=== PATIENT | male | born 1955 | race Caucasian/White ===

== ENCOUNTER 2021-04-20 11:28 | Outpatient (CLI) | payer OTHER ==
--- NOTE | 2021-04-20 19:32 | XRAY Report ---
PROCEDURE: Chest 2 View X-Ray INDICATIONS: COUGH / CONGESTION TECHNIQUE: 2 view(s) of the chest. COMPARISON: None. FINDINGS: Surgical changes and devices: None. Lungs and pleura: No pleural effusions or pneumothorax. Lungs are clear. Mediastinum: Mediastinal contours are normal. Heart size is normal. Bones and chest wall: No suspicious bony abnormalities. Soft tissues appear unremarkable. IMPRESSION: No evidence acute pulmonary process. Reviewed by: Estiven Guerra MD on 04/20/2021 7:31 PM PDT Approved by: Estiven Guerra MD on 04/20/2021 7:31 PM PDT Station ID: [id number]
== END 2021-04-20 11:30 ==
LOC: DI.N 11:28
PROVIDERS: ATTEND Family Medicine
DX: R05.9 Cough, unspecified (principal)

== ENCOUNTER 2021-05-11 14:08 | Outpatient (CLI) | payer OTHER | END 2021-05-11 14:09 | disposition home or self-care (01) | LOC: LAB 14:08 | PROVIDERS: ATTEND Family Medicine | DX: R61 Generalized hyperhidrosis (principal) | CPT/HCPCS: 87040 ==

== ENCOUNTER 2022-04-30 08:00 | Outpatient (CLI) | payer MEDICARE, OTHER ==
--- NOTE | 2022-04-30 20:21 | XRAY Report ---
PROCEDURE: Ankle 3 View LT INDICATIONS: L ANKLE PX TECHNIQUE: 3 views of the ankle were acquired. COMPARISON: None. FINDINGS: In both the talar dome and tibial plafond appear the ankle mortise is congruent. There is no suspicio us lytic or blastic osseous lesion. There is a small to moderate ankle joint effusion. 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 Reviewed by: Kamron Armstrong MD on 04/30/2022 8:19 PM PDT Approved by: Kamron Armstrong MD on 04/30/2022 8:19 PM PDT Station ID: [id number]
== END 2022-04-30 23:59 | disposition home or self-care (01) ==
LOC: DI.N 08:00
PROVIDERS: ATTEND Physician Assistant
DX: M19.072 Primary osteoarthritis, left ankle and foot (principal)

== ENCOUNTER 2022-05-04 16:25 | Outpatient (CLI) | payer MEDICARE, OTHER ==
--- NOTE | 2022-05-04 17:13 | XRAY Report ---
PROCEDURE: Ankle 2 View LT INDICATIONS: L ANKLE PAIN TECHNIQUE: 2 views of the ankle were acquired. COMPARISON: Left ankle radiographs 04/30/2022. FINDINGS: Bones: No fractures or dislocations. Ankle mortise is normally aligned. No suspicious bony lesions . Degenerative changes of the tibiotalar joint redemonstrated. Soft tissues: Similar tibiotalar joint effusion. Achilles tendon appears normal. IMPRESSION: No acute fracture or significant short interval change. Tibiotalar joint degenerative changes and eff usion redemonstrated. Reviewed by: Cezar Fernando MD on 05/04/2022 5:12 PM PDT Approved by: Cezar Fernando MD on 05/04/2022 5:12 PM PDT Station ID: [id number]
== END 2022-05-04 16:26 | disposition home or self-care (01) ==
LOC: DI 16:25
PROVIDERS: ATTEND Student in an Organized Health Care Education/Training Program
DX: M19.072 Primary osteoarthritis, left ankle and foot (principal); M25.472 Effusion, left ankle

== ENCOUNTER 2022-12-20 23:19 | Outpatient (CLI) | payer MEDICARE, OTHER | END 2022-12-20 23:59 | disposition critical access hospital (66) | LOC: EMS 23:19 | DX: R55 Syncope and collapse (principal) | CPT/HCPCS: A0425; A0429 ==

== ENCOUNTER 2022-12-20 23:36 | Emergency (ER) | payer MEDICARE, OTHER ==
[2022-12-20 23:51] LABS: BASOPHILS # (AUTO) 0.1 10^3/uL (0.0-0.1); BASOPHILS % (AUTO) 0.7 %; EOSINOPHILS # (AUTO) 0.4 10^3/uL (0.0-0.7); EOSINOPHILS % (AUTO) 3.7 %; HCT - HEMATOCRIT 38.2 % (42.0-52.0); HGB - HEMOGLOBIN 12.3 g/dL (14.0-18.0); LYMPHOCYTES # (AUTO) 2.1 10^3/uL (1.5-3.5); LYMPHOCYTES % (AUTO) 19.8 %; MEAN CORPUSCULAR HEMOGLOBIN 27.6 pg (27.0-31.0); MEAN CORPUSCULAR HGB CONC 32.2 g/dL (32.0-36.0); MEAN CORPUSCULAR VOLUME 85.8 fL (80.0-94.0); MEAN PLATELET VOLUME 9.2 fL (7.4-11.4); NEUTROPHILS # (AUTO) 7.1 10^3/uL (1.5-6.6); NEUTROPHILS % (AUTO) 66.1 %; PLT - PLATELET COUNT 239 10^3/uL (130-450); RED BLOOD COUNT 4.45 10^6/uL (4.70-6.10); RED CELL DISTRIBUTION WIDTH 13.5 % (12.0-15.0); WHITE BLOOD COUNT 10.7 x10^3/uL (4.8-10.8)
[2022-12-20] MEDS ORDERED: diltiaZEM INJ 5 MG/ML VIAL IVP STA (23:54)
--- NOTE | 2022-12-20 23:57 | ED Physician Documentation ---
History of Present Illness - Stated complaint Stated Complaint: SYNCOPE - Chief complaint Chief Complaint: Cardiac - History obtained from History obtained from: Patient, Family (), EMS - Additonal information Additional information: 67-year-old man with history of recent TAVR, aortic aneurysm repair via open heart surgery november 20, presents with syncopal episode lasting a few seconds in the recliner tonight. Patient declines chest pain, shortness of breath but is in a flutter on the monitor upon arrival. PD PAST MEDICAL HISTORY - Present Medications Home Medications: Ambulatory Orders Medication Instructions Recorded Confirmed Amiodarone [Pacerone] 200 mg PO BID #60 tablet 12/21/22 - Allergies Allergies/Adverse Reactions: Allergies Allergy/AdvReac Type Severity Reaction Status Date / Time No Known Drug Allergies Allergy Verified 12/20/22 23:52 PD ED PE NORMAL - Vitals Vital signs reviewed: Yes - General General: Alert and oriented X 3, No acute distress, Well developed/nourished - HEENT HEENT: Atraumatic, PERRL, EOMI - Neck Neck: Supple, no meningeal sign - Cardiac Cardiac: Other (Tachycardic rate rate, regular rhythm) - Respiratory Respiratory: No respiratory distress, Clear bilaterally - Abdomen Abdomen: Non tender, Non distended - Derm Derm: Normal color, Warm and dry - Extremities Extremities: No deformity - Neuro Neuro: Alert and oriented X 3 - Psych Psych: Normal mood, Normal affect Results - Vitals Vitals: Vital Signs - 24 hr 12/20/22 12/21/22 12/21/22 23:42 00:22 00:30 Temperature 37.1 C Heart Rate 67 92 95 Respiratory 22 25 H 19 Rate Blood Pressure 130/80 115/68 117/82 H O2 Saturation 96 96 95 12/21/22 00:38 Temperature Heart Rate 99 Respiratory 19 Rate Blood Pressure 128/67 O2 Saturation 98 Oxygen O2 Source Room air - EKG (time done) 8348 EKG releavant findings:: EKG personally interpreted by author of this note. Relevant findings are: Rate: Rate (enter#) (123) Rhythm: Atrial flutter - Labs Labs: Laboratory Tests 12/20/22 12/20/22 12/20/22 23:44 23:44 23:44 WBC 10.7 RBC 4.45 L Hgb 12.3 L Hct 38.2 L MCV 85.8 MCH 27.6 MCHC 32.2 RDW 13.5 Plt Count 239 MPV 9.2 Neut # (Auto) 7.1 H Lymph # (Auto) 2.1 [place] # (Auto) 1.0 Eos # (Auto) 0.4 Baso # (Auto) 0.1 Absolute Nucleated RBC 0.00 Nucleated RBC % 0.0 Sodium 136 Potassium 3.8 Chloride 105 Carbon Dioxide 22 Anion Gap 9.0 BUN 25 H Creatinine 1.0 Estimated GFR (MDRD) 75 L Glucose 128 H Calcium 8.5 Total Bilirubin 0.7 AST 28 ALT 34 Alkaline Phosphatase 83 Troponin I High Sens 6.1 Total Protein 7.2 Albumin 3.4 Globulin 3.8 Albumin/Globulin Ratio 0.9 L Lipase 34 PD Medical Decision Making - ED course ED course: 67-year-old man with recent open heart surgery presents with syncopal episode this evening. CBC, abdominal panel, troponin, EKG, chest x-ray ordered. 20 mg IV Cardizem administered for atrial flutter. Will reevaluate. Labs look benign and HR has improved to <100 s/p cardizem. Patient has hx anemia and required transfusion prior to surgery. no prior labs available but hb 12 at present. state he was on amiodarone 200mg bid since discharge from hospital but was told to stop it two days ago. discussed all this with Dr Hernandez, CT surgeon at [facility] and Dr. Calderon, [facility] snowmobile mechanic who recommended outpatient follow up and restart him on amiodarone 200bid for additional month. They did not recommend anticoagulation at this time. [id number] score is 2. Plan to f/u outpatient cardiology and they will readdress need for AC at that time. Return precautions given. Departure - Departure Disposition: 01 Home, Self Care Clinical Impression: Atrial fibrillation with RVR Condition: Stable Instructions: Atrial Fibrillation Dc Prescriptions: Amiodarone [Pacerone] 200 mg PO BID #60 tablet Comments: You are seen in the emergency department for a fainting episode and A-fib. Please follow-up with Dr. Calderon, snowmobile mechanic with the [facility]. You can also follow-up with cardiothoracic surgery. Return to the emergency department for new or worsening symptoms or other concerns. Electronic prescription for amiodarone was sent electronically to your [facility] pharmacy. Your snowmobile mechanic may want to start you on an anticoagulant such as warfarin when you follow up in clinic. Marlo Estes MD, MPH [email or web address] [id number] [place] [address] ~31 ak
[2022-12-21 00:40] VITALS: BP 128/67
--- NOTE | 2022-12-21 00:44 | XRAY Report ---
PROCEDURE: Chest 1 View X-Ray INDICATIONS: Chest Pain TECHNIQUE: One view of the chest was acquired. COMPARISON: Chest x-ray 04/24/2021. FINDINGS: Surgical changes and devices: Postsurgical changes demonstrated in the mediastinum with multiple med alessandro sternotomy wires. Lungs and pleura: Evaluation slightly limited by lordotic projection. No pleural effusions or pneumo thorax. Mediastinum: There are bibasilar medial opacities which may reflect artifact from patient's overlyin g soft tissues. Heart size is normal. Bones and chest wall: No suspicious bony lesions. Overlying soft tissues appear unremarkable. IMPRESSION: 1. Medial bibasilar opacities may represent artifact from patient's soft tissues and lordotic project ion. The differential includes a large hiatal hernia, atelectasis, or consolidation. Reviewed by: Venkata Hollingsworth MD on 12/21/2022 12:42 AM PDT Approved by: Venkata Hollingsworth MD on 12/21/2022 12:42 AM PDT Station ID: [id number]
[2022-12-21 00:49] LABS: ALBUMIN 3.4 g/dL (3.2-5.5); ALBUMIN/GLOBULIN RATIO 0.9 (1.0-2.2); BILIRUBIN,TOTAL 0.7 mg/dL (0.2-1.0); CALCIUM 8.5 mg/dL (8.5-10.3); POTASSIUM 3.8 mmol/L (3.5-5.0); TOTAL PROTEIN 7.2 g/dL (6.7-8.2)
== END 2022-12-21 01:58 | disposition home or self-care (01) ==
LOC: EDUNIT# → ED 23:36
DX: I48.92 Unspecified atrial flutter (principal)
CPT/HCPCS: 36415; 80053; 83690; 84484; 85025; 93005; 96374; 99284

== ENCOUNTER 2023-01-09 13:15 | Outpatient (CLI) | payer MEDICARE, OTHER | END 2023-01-09 13:16 | disposition home or self-care (01) | LOC: RT 13:15 | PROVIDERS: ATTEND Internal Medicine Cardiovascular Disease | DX: I48.19 Other persistent atrial fibrillation (principal); I77.819 Aortic ectasia, unspecified site | CPT/HCPCS: 93005 ==

== ENCOUNTER 2023-09-12 10:53 | Emergency (ER) | payer OTHER, MEDICARE ==
--- NOTE | 2023-09-12 12:14 | ED Physician Documentation ---
PD HPI SKIN - Stated complaint Stated Complaint: HEAD LAC - Chief complaint Chief Complaint: Laceration - Additional information Additional information: 68-year-old male who does not believe he is up-to-date with his immunizations presents emergency department today for forehead laceration. Patient was at work was using a crowbar for a project and as he was trying to release the crowbar he lost control and it swung and hit him in his head. He had no loss of consciousness he is not any blood thinners he denies any amnesia of the event. Bleeding is well-controlled. There is a small laceration on his forehead just superior to the right eyebrow. PD PAST MEDICAL HISTORY - Past Medical History Past Medical History: Yes Cardiovascular: Hypertension, Coronary artery disease, Atrial fibrillation - Past Surgical History Past Surgical History: Yes Cardiovascular: CABG, Valve replacement - Present Medications Home Medications: Ambulatory Orders Medication Instructions Recorded Confirmed Aspirin [[place] Aspirin] 81 mg PO DAILY 09/12/23 09/12/23 Chlorthalidone 25 mg PO DAILY 09/12/23 09/12/23 Losartan Potassium 25 mg PO BID 09/12/23 09/12/23 Metoprolol Succinate [[place] 25 mg PO DAILY 09/12/23 09/12/23 Sprinkle] Potassium Chloride 10 meq PO DAILY 09/12/23 09/12/23 Tamsulosin [Flomax] 1 cap PO DAILY 09/12/23 09/12/23 - Allergies Allergies/Adverse Reactions: Allergies Allergy/AdvReac Type Severity Reaction Status Date / Time No Known Drug Allergies Allergy Verified 09/12/23 11:00 - Social History Does the pt smoke?: No Smoking Status: Never smoker Does the pt drink ETOH?: Yes Does the pt have substance abuse?: No PD ED PE NORMAL - Vitals Vital signs reviewed: Yes - General General: Alert and oriented X 3, No acute distress, Well developed/nourished - HEENT HEENT: PERRL, EOMI, Other (2 cm laceration to right forehead superior to right elbow.) - Neck Neck: No bony TTP - Neuro Neuro: Alert and oriented X 3, cleaning attendant 2-12 intact, No motor deficit, No sensory deficit, Normal speech Eye Opening: Spontaneous Motor: Obeys Commands Verbal: Oriented GCS Score: 15 - Psych Psych: Normal mood Results - Vitals Vitals: Vital Signs - 24 hr 09/12/23 09/12/23 10:56 12:28 Temperature 36.4 C L Heart Rate 60 60 Respiratory 16 16 Rate Blood Pressure 153/70 H 138/68 H O2 Saturation 96 98 Oxygen O2 Source Room air Procedures - Laceration (location) right forehead Length in cm: 2 Wound type: Linear, Superficial, Clean Wound preparation: Irrigated copiously NS Skin layer closure: Dermabond, Steri strips (3) Other: Patient tolerated well, No complications, Tetanus booster given PD Medical Decision Making - ED course ED course: Wound inspected under direct bright light with good visualization. Area with linear laceration across soft tissue through adipose. No overt foreign body. Area hemostatic. Area extensively irrigated with sterile normal saline under pressure. Laceration repaired in simple fashion with dermabond and steri strips (x3) (please see procedure note for further details). Patient tolerated procedure well. Cautious return precautions discussed w/ full understanding. Wound care discussed. Departure - Departure Disposition: 01 Home, Self Care Clinical Impression: Laceration of head Qualifiers: Encounter type: initial encounter Location of open wound of head: other part of head Foreign body presence: without foreign body Qualified Code(s): S01.81XA - Laceration without foreign body of other part of head, initial encounter Instructions: ED Laceration All Comments: Come back for any signs of infection which would include: Redness, swelling, drainage, increased pain, or fevers. You can remove the Steri-Strips after 5 to 7 days if they are still on your forehead. Please come back to the emergency department for have any signs or symptoms of confusion, altered mental status, increased fatigue, or any other concerning symptoms. Forms: PCP List Discharge Date/Time: 09/12/23 12:29
[2023-09-12] MEDS: TETANUS/DIPHTHERIA/PERTUSSIS 0.5 ML SYRINGE IM ONE (12:15)
[2023-09-12 12:31] VITALS: BP 138/68; O2SAT 98
== END 2023-09-12 12:29 | disposition home or self-care (01) ==
LOC: EDUNIT# → ED 10:53
DX: S01.81XA Laceration without foreign body of other part of head, initial encounter (principal); W22.8XXA Striking against or struck by other objects, initial encounter; Y92.89 Other specified places as the place of occurrence of the external cause; Y99.0 Civilian activity done for income or pay; Z23 Encounter for immunization; I10 Essential (primary) hypertension; I25.10 Atherosclerotic heart disease of native coronary artery without angina pectoris; I48.91 Unspecified atrial fibrillation; Z95.1 Presence of aortocoronary bypass graft; Z95.2 Presence of prosthetic heart valve
CPT/HCPCS: 12011; 90471; 99283

== ENCOUNTER 2024-10-26 15:44 | Observation (INO) ==
--- OUTSIDE RECORDS SUMMARY | 2024-10-26 16:07 | EXTERNAL MEDICAL SUMMARY RPT | Continuity of Care Document ---
Author Organization [facility] Address [address] [place] [id number] Phone Problems date description facility 2024-08-25 15:23 Laceration without f oreign body of other part of head, initial encounter [facility] 2024-08-27 11:31 Laceration without f oreign body of other part of head, initial encounter [facility] 2024-09-25 10:37 Encounter for screen ing for malignant neoplasm of colon [employer] 2024-10-06 08:39 Encounter for screen ing for malignant neoplasm of colon [facility] Social History date description facility
--- NOTE | 2024-10-26 16:13 | ED Physician Documentation ---
History of Present Illness Stated complaint Stated Complaint: DIZZY Chief complaint Chief Complaint: Cardiac History obtained from History obtained from: Patient Additonal information Additional information: 69-year-old gentleman with history of aortic valve replacement and aortic aneurysm repair in November 2022. Perioperatively he did have some troubles with A- fib and was on amiodarone, he is no longer. He is not anticoagulated. He is on a small dose of metoprolol, 12.5 mg twice daily. Around noon today he got a dizzy spell, he felt like he was going to faint and was presyncopal. That lasted a couple of minutes, he had another shorter episode a couple of hours later during which his [employer] watch alarmed that his heart rate was in the low 40s. His usual heart rate is in the mid 50s. He denies chest pain with this. He does have some shortness of breath but says that it is probably due to allergies. Meds/Allgy Home Medications Ambulatory Orders Medication Instructions Recorded Confirmed aspirin 81 mg chewable tablet (St 81 mg PO DAILY 09/12/23 10/26/24 Charlie Butt) chlorthalidone 25 mg tablet 25 mg PO DAILY 09/12/23 10/26/24 losartan 25 mg tablet 25 mg PO BID 09/12/23 10/26/24 potassium chloride 10 mEq 10 meq PO DAILY 09/12/23 10/26/24 capsule,extended release tamsulosin 0.4 mg capsule 1 cap PO DAILY 09/12/23 10/26/24 albuterol sulfate 90 mcg/actuation 1 inh inhalation Q4H PRN shortness 09/25/24 10/26/24 aerosol inhaler of breath or wheezing atorvastatin 20 mg tablet (Lipitor) 20 mg PO DAILY 09/25/24 10/26/24 fluticasone 250 mcg-salmeterol 50 1 inh inhalation DAILY 09/25/24 10/26/24 mcg/dose blistr powdr for inhalation (Advair Diskus) fluticasone propionate 50 1 spray intranasal DAILY 09/25/24 10/26/24 mcg/actuation nasal spray,suspension (24 Hour Allergy Relief) folic acid 400 mcg tablet 400 mcg PO DAILY 09/25/24 10/26/24 metoprolol succinate 25 mg 12.5 mg PO DAILY 09/25/24 10/26/24 tablet,extended release 24 hr omeprazole 20 mg capsule,delayed 20 mg PO DAILY 09/25/24 10/26/24 release Allergies Allergies Allergy/AdvReac Type Severity Reaction Status Date / Time No Known Drug Allergies Allergy Verified 10/26/24 16:02 PFSH Active Problems All Active Problems (Updated 10/26/24 @ 18:13 by Jair Garcias MD) Symptomatic bradycardia (Acute) Colon cancer screening (Acute) Medical History Medical History (Updated 10/26/24 @ 18:13 by Jair Garcias MD) Asthma Hypertension High cholesterol GERD (gastroesophageal reflux disease) Surgical History Surgical History (Updated 10/02/24 @ 06:57 by Devin Vicente CRNA) History of aortic valve replacement History of aortic aneurysm repair History of hand surgery History of colonoscopy History of tonsillectomy Social History Social History (Updated 09/25/24 @ 11:25 by Chrystal Shepherd RN) Smoking Status: Former smoker Relationship: Do you feel safe in your home environment?: Yes Suffered physical, verbal, emotional, or financial abuse?: No History of Abuse: No Frequency: Occasional Substance Use: denies use Exam Exam Vital Signs: Vital Signs x48h Temp Pulse Resp BP Pulse Ox 10/26/24 18:30 42 L 12 146/75 H 99 10/26/24 18:15 43 L 10 L 135/66 H 97 10/26/24 18:00 42 L 14 138/76 H 98 10/26/24 17:45 44 L 132/72 H 97 10/26/24 17:30 46 L 16 144/72 H 98 10/26/24 17:15 44 L 16 142/77 H 98 10/26/24 17:02 45 L 12 114/61 93 10/26/24 16:17 45 L 18 98 10/26/24 15:58 36.5 C 44 L 18 141/50 H 98 Constitutional normal general appearance and no apparent distress Respiratory breath sounds equal bilaterally, normal respiratory effort and clear to auscultation bilaterally Cardiovascular Modest bradycardia, regular without murmur Gastrointestinal nontender to palpation Results Vitals Vitals: Vital Signs - 24 hr 10/26/24 15:58 10/26/24 16:17 10/26/24 17:02 Temperature 36.5 C Temperature Source Temporal Artery Scan Pulse Rate 44 L 45 L 45 L Respiratory Rate 18 18 12 Blood Pressure 141/50 H 114/61 O2 Saturation 98 98 93 O2 Source Room air Room air Room air Pain Intensity 0 0 0 10/26/24 17:15 10/26/24 17:30 10/26/24 17:45 Temperature Temperature Source Pulse Rate 44 L 46 L 44 L Respiratory Rate 16 16 Blood Pressure 142/77 H 144/72 H 132/72 H O2 Saturation 98 98 97 O2 Source Room air Room air Room air Pain Intensity 0 0 10/26/24 18:00 10/26/24 18:15 10/26/24 18:30 Temperature Temperature Source Pulse Rate 42 L 43 L 42 L Respiratory Rate 14 10 L 12 Blood Pressure 138/76 H 135/66 H 146/75 H O2 Saturation 98 97 99 O2 Source Room air Room air Room air Pain Intensity 0 0 Oxygen O2 Source Room air EKG (time done) 1625: EKG releavant findings:: EKG personally interpreted by author of this note. Relevant findings are: Sinus bradycardia with rate of 42, mild nonspecific IVCD, no ST elevation or depression. 1800: EKG releavant findings:: EKG personally interpreted by author of this note. Relevant findings are: Sinus bradycardia with rate of 44, early R wave transition Labs Labs: Laboratory Tests 10/26/24 16:13 WBC 8.8 RBC 4.86 Hgb 14.5 Hct 41.9 L MCV 86.2 MCH 29.8 MCHC 34.6 RDW 12.7 Plt Count 154 MPV 10.3 Neut # (Auto) 5.3 Lymph # (Auto) 2.4 [place] # (Auto) 0.7 Eos # (Auto) 0.2 Baso # (Auto) 0.1 Absolute Nucleated RBC 0.00 Nucleated RBC % 0.0 Sodium 136 Potassium 3.2 L Chloride 103 Carbon Dioxide 26 Anion Gap 7.0 BUN 18 Creatinine 0.9 Estimated GFR (MDRD) 84 L Glucose 105 H Calcium 8.7 Total Bilirubin 1.2 H AST 17 ALT 17 Alkaline Phosphatase 67 Total Protein 6.5 Albumin 4.0 Globulin 2.5 Albumin/Globulin Ratio 1.6 PD Medical Decision Making ED course ED course: This is a 69-year-old gentleman with history of aortic valve replacement and aortic aneurysm repair who presents with dizzy spells. He has noted to be bradycardic, going as low as 41 on the monitor but asymptomatic while supine in the bed. He is in a sinus rhythm. He is on metoprolol, but a tiny dose of 12.5 mg of long-acting once a day. He is on no other rate affecting agents. Labs we re checked with unremarkable CBC, CMP only remarkable for mild hypokalemia which was repleted. I gave him the option of going home and stopping his metoprolol but with the expectation he may still have dizzy spells, coming in the hospital here for metoprolol washout but with the expectation that his heart rate may not improve much given the dose of metoprolol he is on, or calling his watch and clock repair clerk and he opted for that. They were paged at 4:44 PM. I spoke with Dr. Peres at [facility] 4:52 PM. He reviewed the records and notes that the bradycardia is relatively chronic for him based on clinic notes. He notes that the patient does have hold parameters for the metoprolol. And also wonders if his symptoms might be due to dehydration related to his diuretic (chlorthalidone). We agreed I would give him a liter of fluids and see how he was doing upright and he should hold his metoprolol per his hold parameters (hold if less than 40 or symptomatic in less than 50). Around 1740 he started to have some pauses, looks like on the monitor he would have a sinus beat and then a PVC and then a long pause several times in a row. He was supine during this and was still asymptomatic, will obtain repeat EKG and call Dr. Peres again. I spoke with Dr. Peres again 6:11 PM with the above information and he feels the patient can stay the night here, have his electrolytes optimized and metoprolol washed out and reconsult if he is still having severe bradycardias or arrhythmias. I spoke with BREANNA Bonilla for observation at 6:13 PM. Discharge Plan Discharge Patient Disposition: ED Place in Observation Condition: Stable Clinical Impression: Symptomatic bradycardia Prescriptions: No Action potassium chloride 10 MEQ capsule, extended release 10 meq PO DAILY chlorthalidone 25 MG tablet 25 mg PO DAILY tamsulosin 0.4 MG capsule 1 cap PO DAILY losartan 25 MG tablet 25 mg PO BID aspirin [[place] Aspirin] 81 MG tablet,chewable 81 mg PO DAILY metoprolol succinate 25 mg tablet extended release 24 hr 12.5 mg PO DAILY fluticasone propion-salmeterol [Advair Diskus] 250-50 mcg/dose blister with device 1 inh inhalation DAILY fluticasone propionate [24 Hour Allergy Relief] 50 mcg/actuation spray,suspension 1 spray intranasal DAILY Rx Instructions: administer into each nostril omeprazole 20 mg capsule,delayed release(DR/EC) 20 mg PO DAILY atorvastatin [Lipitor] 20 mg tablet 20 mg PO DAILY folic acid 400 mcg tablet 400 mcg PO DAILY albuterol sulfate 90 mcg/actuation HFA aerosol inhaler 1 inh inhalation Q4H PRN (Reason: shortness of breath or wheezing) Print Language: Cameroonian Stand Alone Forms: PCP List
[2024-10-26 16:17] LABS: BASOPHILS # (AUTO) 0.1 10^3/uL (0.0-0.1); BASOPHILS % (AUTO) 0.6 %; EOSINOPHILS # (AUTO) 0.2 10^3/uL (0.0-0.7); EOSINOPHILS % (AUTO) 2.6 %; HCT - HEMATOCRIT 41.9 % (42.0-52.0); HGB - HEMOGLOBIN 14.5 g/dL (14.0-18.0); LYMPHOCYTES # (AUTO) 2.4 10^3/uL (1.5-3.5); LYMPHOCYTES % (AUTO) 27.7 %; MEAN CORPUSCULAR HEMOGLOBIN 29.8 pg (27.0-31.0); MEAN CORPUSCULAR HGB CONC 34.6 g/dL (32.0-36.0); MEAN CORPUSCULAR VOLUME 86.2 fL (80.0-94.0); MEAN PLATELET VOLUME 10.3 fL (7.4-11.4); MONOCYTES # (AUTO) 0.7 10^3/uL (0.0-1.0); NEUTROPHILS # (AUTO) 5.3 10^3/uL (1.5-6.6); NEUTROPHILS % (AUTO) 60.8 %; PLT - PLATELET COUNT 154 10^3/uL (130-450); RED BLOOD COUNT 4.86 10^6/uL (4.70-6.10); RED CELL DISTRIBUTION WIDTH 12.7 % (12.0-15.0); WHITE BLOOD COUNT 8.8 x10^3/uL (4.8-10.8)
[2024-10-26 16:34] LABS: ALBUMIN/GLOBULIN RATIO 1.6 (1.0-2.2); BILIRUBIN,TOTAL 1.2 mg/dL (0.2-1.0); CALCIUM 8.7 mg/dL (8.5-10.3); CREATININE 0.9 mg/dL (0.6-1.3); POTASSIUM 3.2 mmol/L (3.5-4.5); TOTAL PROTEIN 6.5 g/dL (6.4-8.9)
--- NOTE | 2024-10-26 16:43 | XRAY Report ---
PROCEDURE: XR Chest 1V INDICATIONS: dizzy TECHNIQUE: One view of the chest was acquired. COMPARISON: Midline sternotomy wires. FINDINGS: Surgical changes and devices: None. Lungs and pleura: No pleural effusions or pneumothorax. No consolidation. Mediastinum: Mediastinal contours appear normal. Heart size is top normal. Bones and chest wall: No suspicious bony lesions. Overlying soft tissues appear unremarkable. IMPRESSION: No gross infiltrates. Reviewed by: Estiven Guerra MD on 10/26/2024 4:42 PM PDT Approved by: Estiven Guerra MD on 10/26/2024 4:42 PM PDT Station ID: [id number]
[2024-10-26] MEDS: POTASSIUM BICARB 25 MEQ TABLET PO STA (17:02)
[2024-10-26] MEDS: SODIUM CHLORIDE 0.9% 1,000 ML IV STA (17:02)
[2024-10-26] MEDS ORDERED: ONDANSETRON 4 MG/2 ML VIAL IVP PRN (19:07)
[2024-10-26] MEDS ORDERED: ONDANSETRON ODT 4 MG TABLET TL PRN (19:07)
[2024-10-26] MEDS ORDERED: SODIUM CHLORIDE FLUSH 0.9% 10 ML SYRINGE IVP PRN (19:07)
[2024-10-26] MEDS ORDERED: ACETAMINOPHEN 325 MG TABLET PO PRN (19:07)
--- NOTE | 2024-10-26 19:14 | HISTORY & PHYSICAL EXAMINATION ---
Chief Complaint Chief Complaint Chief Complaint: Dizziness History of Present Illness Admitted From Admitted From:: Home with History Obtained From History obtained from: Interview with patient and at bedside History of Present Illness HPI Comment/Other: 69-year-old male history of aortic valve replacement and aortic aneurysm repair November 2022. Was briefly on amiodarone in the perioperative period but not anymore. He is on 12.5 mg metoprolol daily. He comes to the ER because he had a dizzy spell around noon after he stood up. He says he stood up out of his chair and started walking and felt lightheaded, weak in the legs, and that he felt like there was a fog for a brief moment. He had another such episode, and his smart watch alarmed that his heart rate was low. He denies fever, chills, chest pain, dyspnea, bowel or bladder disturbance. He does report some nasal and chest congestion from seasonal allergies. He states that he is a former smoker with a [id number] history. He is on an Advair inhaler and albuterol as needed. He says that seasonal allergies are normal for him and he feels like that is what is going on here. He manages this with Flonase nasal spray but no oral medication. In the ER, lab work was significant for potassium 3.2. He received a liter of IV fluids and is feeling better now. Somewhat concerning Lc, he is having bradycardia. He is having episodes where he will have a sinus beat immediately followed by PVC and a compensatory pause. This cycle will continue for some time with a functional heart rate in the 30s. Patient is asymptomatic during this. His case was discussed with cardiology at an outside facility. They report that his dizziness is likely secondary to dehydration from his chlorthalidone or effect of his metoprolol, even though he is only on 12.5 mg of metoprolol succinate daily. They recommended that we hold him in observation overnight and replete his fluid and electrolytes and that no transfer is necessary. Hospitalist was contacted for observation for dizziness, lightheadedness, symptomatic bradycardia Meds/Allgy Home Medications Ambulatory Orders Medication Instructions Recorded Confirmed aspirin 81 mg chewable tablet (St 81 mg PO DAILY 09/12/23 10/26/24 Charlie Aspirin) chlorthalidone 25 mg tablet 25 mg PO DAILY 09/12/23 10/26/24 losartan 25 mg tablet 25 mg PO BID 09/12/23 10/26/24 potassium chloride 10 mEq 10 meq PO DAILY 09/12/23 10/26/24 capsule,extended release tamsulosin 0.4 mg capsule 1 cap PO DAILY 09/12/23 10/26/24 albuterol sulfate 90 mcg/actuation 1 inh inhalation Q4H PRN shortness 09/25/24 10/26/24 aerosol inhaler of breath or wheezing atorvastatin 20 mg tablet (Lipitor) 20 mg PO DAILY 09/25/24 10/26/24 fluticasone 250 mcg-salmeterol 50 1 inh inhalation DAILY 09/25/24 10/26/24 mcg/dose blistr powdr for inhalation (Advair Diskus) fluticasone propionate 50 1 spray intranasal DAILY 09/25/24 10/26/24 mcg/actuation nasal spray,suspension (24 Hour Allergy Relief) folic acid 400 mcg tablet 400 mcg PO DAILY 09/25/24 10/26/24 metoprolol succinate 25 mg 12.5 mg PO DAILY 09/25/24 10/26/24 tablet,extended release 24 hr omeprazole 20 mg capsule,delayed 20 mg PO DAILY 09/25/24 10/26/24 release Allergies Allergies Allergy/AdvReac Type Severity Reaction Status Date / Time No Known Drug Allergies Allergy Verified 10/26/24 16:02 PFSH Active Problems All Active Problems (Updated 10/26/24 @ 18:13 by Jair Garcias MD) Symptomatic bradycardia (Acute) Colon cancer screening (Acute) Medical History Medical History (Updated 10/26/24 @ 18:13 by Jair Garcias MD) Asthma Hypertension High cholesterol GERD (gastroesophageal reflux disease) Surgical History Surgical History (Updated 10/02/24 @ 06:57 by Devin Vicente CRNA) History of aortic valve replacement History of aortic aneurysm repair History of hand surgery History of colonoscopy History of tonsillectomy Social History Social History (Updated 09/25/24 @ 11:25 by Chrystal Shepherd RN) Smoking Status: Former smoker Relationship: Do you feel safe in your home environment?: Yes Suffered physical, verbal, emotional, or financial abuse?: No History of Abuse: No Frequency: Occasional Substance Use: denies use Review of Systems Status of ROS: 10 or more systems reviewed and unremarkable except as noted in history and below Constitutional Denies: Fever or Chills Eyes Reports: Irritation Ears, nose, mouth, and throat Reports: Nasal congestion Cardiovascular Reports: other (Reports chest congestion); Denies: Irregular heart rate, chest pain, palpitations or shortness of breath with exertion Respiratory Denies: Shortness of breath or Cough Gastrointestinal Denies: Abdominal pain or Abdominal distention Genitourinary Denies: Painful urination Neurological Reports: Dizziness (With activity) Exam Exam Vital Signs: Vital Signs x48h Temp Pulse Resp BP Pulse Ox 10/26/24 18:45 46 L 14 146/75 H 98 10/26/24 18:30 42 L 12 146/75 H 99 10/26/24 18:15 43 L 10 L 135/66 H 97 10/26/24 18:00 42 L 14 138/76 H 98 10/26/24 17:45 44 L 132/72 H 97 10/26/24 17:30 46 L 16 144/72 H 98 10/26/24 17:15 44 L 16 142/77 H 98 10/26/24 17:02 45 L 12 114/61 93 10/26/24 16:17 45 L 18 98 10/26/24 15:58 36.5 C 44 L 18 141/50 H 98 Constitutional normal general appearance and no apparent distress HENMT normocephalic and head/scalp atraumatic Eyes PERRL Neck/C-Spine visual inspection normal Lymph no lymphadenopathy noted Chest inspection of chest normal Respiratory breath sounds equal bilaterally, normal respiratory effort and clear to auscultation bilaterally Cardiovascular heart rate abnormal (bradycardic) and rhythm abnormal (Sinus bradycardia with episodes of ventricular bigeminy with pause) Gastrointestinal abdomen normal to inspection and abdomen soft to palpation Genitourinary bladder normal to palpation Extremities normal to inspection and normal to palpation Neurology GCS 15 Psychiatry oriented x3 Skin skin color normal Conclusion/Plan Problem List (1) Symptomatic bradycardia: Plan: Cardiology at outside facility was contacted by ER provider, they report that the bradycardia is not the cause of his dizziness Telemetry Low threshold to transfer if he becomes symptomatic during his episodes of bradycardia His dizziness was associated with activity I have ordered potassium 40 mill equivalent to address his hypokalemia at the recommendation of outside cardiology (2) Asthma: Plan: Asthma with a [id number] smoking history On Advair plus rescue inhaler at home He has been reporting some seasonal allergies that have been affecting this I am continuing his home Flonase as well as his inhaler regimen I am also adding 10 mg Zyrtec daily to help with his allergies Plan Placed in observation Full code His is a surrogate decision-maker Lab Results Lab results reviewed: Yes 10/26/24 16:13 10/26/24 16:13 Core Measures Anticipated LOS I expect patient to be DC'd or transferred within 96 hours.: Yes DVT/VTE - Prophylaxis VTE/DVT Prophylaxis med ordered at admit?: Yes
[2024-10-26] MEDS ORDERED: ALBUTEROL NEB 2.5 MG/3 ML INH PRN (19:22)
[2024-10-26] MEDS: POTASSIUM CHLORIDE 20 MEQ TABLET PO STA (19:54)
[2024-10-26] MEDS: LOSARTAN 50 MG TABLET PO SCH (20:23)
[2024-10-27] MEDS: SODIUM CHLORIDE FLUSH 0.9% 10 ML SYRINGE IVP SCH (01:00)
[2024-10-27 04:49] VITALS: TEMP 97.7; O2SAT 96
[2024-10-27 05:10] LABS: BASOPHILS # (AUTO) 0.1 10^3/uL (0.0-0.1); BASOPHILS % (AUTO) 0.6 %; EOSINOPHILS # (AUTO) 0.2 10^3/uL (0.0-0.7); EOSINOPHILS % (AUTO) 2.6 %; HCT - HEMATOCRIT 42.1 % (42.0-52.0); HGB - HEMOGLOBIN 14.2 g/dL (14.0-18.0); LYMPHOCYTES # (AUTO) 2.7 10^3/uL (1.5-3.5); MEAN CORPUSCULAR HGB CONC 33.7 g/dL (32.0-36.0); MEAN CORPUSCULAR VOLUME 88.8 fL (80.0-94.0); MEAN PLATELET VOLUME 10.8 fL (7.4-11.4); MONOCYTES # (AUTO) 0.7 10^3/uL (0.0-1.0); MONOCYTES % (AUTO) 8.7 %; NEUTROPHILS # (AUTO) 4.5 10^3/uL (1.5-6.6); NEUTROPHILS % (AUTO) 54.9 %; PLT - PLATELET COUNT 138 10^3/uL (130-450); RED BLOOD COUNT 4.74 10^6/uL (4.70-6.10); RED CELL DISTRIBUTION WIDTH 12.8 % (12.0-15.0); WHITE BLOOD COUNT 8.2 x10^3/uL (4.8-10.8)
[2024-10-27 05:19] LABS: CALCIUM 8.7 mg/dL (8.5-10.3); CREATININE 0.9 mg/dL (0.6-1.3); POTASSIUM 3.9 mmol/L (3.5-4.5)
[2024-10-27] MEDS: PANTOPRAZOLE 40 MG TABLET PO SCH (06:46)
[2024-10-27 08:01] VITALS: BP 126/62
[2024-10-27] MEDS: ENOXAPARIN 40 MG/0.4 ML SYRINGE SUBQ SCH (08:48)
[2024-10-27] MEDS: ASPIRIN CHEW 81 MG TABLET PO SCH (08:49)
[2024-10-27] MEDS: FOLIC ACID 1 MG TABLET PO SCH (08:49)
[2024-10-27] MEDS: ATORVASTATIN 10 MG TABLET PO SCH (08:49)
[2024-10-27] MEDS: TAMSULOSIN 0.4 MG CAPSULE PO SCH (08:49)
[2024-10-27] MEDS: FLUTICASONE NASAL SPRAY NAS SCH (08:54)
[2024-10-27] MEDS: FORMOTEROL FUMARATE NEB 20 MCG/2 ML INH SCH (09:04)
[2024-10-27] MEDS: BUDESONIDE 0.5 MG/2 ML NEB INH SCH (09:04)
--- NOTE | 2024-10-27 11:26 | PHARMACY PROGRESS NOTE ---
Best Possible Medication History Admit Date and Time: 10/26/24 190 Home Medications Medication Instructions Recorded Confirmed Type aspirin 81 mg chewable tablet (St 81 mg PO DAILY 09/12/23 10/26/24 History Charlie Aspirin) chlorthalidone 25 mg tablet 25 mg PO DAILY 09/12/23 10/26/24 History losartan 25 mg tablet 25 mg PO BID 09/12/23 10/26/24 History potassium chloride 10 mEq 10 meq PO DAILY 09/12/23 10/26/24 History capsule,extended release tamsulosin 0.4 mg capsule 1 cap PO DAILY 09/12/23 10/26/24 History albuterol sulfate 90 mcg/actuation 1 inh inhalation Q4H PRN shortness 09/25/24 10/26/24 History aerosol inhaler of breath or wheezing atorvastatin 20 mg tablet (Lipitor) 20 mg PO DAILY 09/25/24 10/26/24 History fluticasone 250 mcg-salmeterol 50 1 inh inhalation DAILY 09/25/24 10/26/24 History mcg/dose blistr powdr for inhalation (Advair Diskus) fluticasone propionate 50 1 spray intranasal DAILY PRN 09/25/24 10/27/24 History mcg/actuation nasal allergy symptoms spray,suspension (24 Hour Allergy Relief) folic acid 400 mcg tablet 400 mcg PO DAILY 09/25/24 10/26/24 History metoprolol succinate 25 mg 12.5 mg PO DAILY 09/25/24 10/27/24 History tablet,extended release 24 hr omeprazole 20 mg capsule,delayed 20 mg PO DAILY 09/25/24 10/26/24 History release Processed by: Pharmacy (Medication reconciliation completed by [employer] DrafterCrystal) Medications reviewed in ED?: No Medication History completed: Yes Patient Interview: Completed Secondary Source(s): Insurance records [facility] Statement: As the person ultimately responsible for medication therapy, providers are able to order a medication from an existing home medication list in [facility] via the "Reconcile Routine" prior to Confirmation of that medication by youth accommodation support worker. Such practice is discouraged except when the physician, in their clinical judgment, deems that a medical need exists for a medication without regard to previous use.
--- NOTE | 2024-10-27 11:39 | Discharge Summary ---
Discharge Summary Admit Date: 10/26/24 Discharge Date: 10/27/24 Discharging Provider: Eric Bonilla NP Primary Care Provider: Hua George Code Status: Attempt Resuscitation DIAGNOSES Admission Diagnoses: Symptomatic bradycardia Asthma Discharge Diagnoses with Status of Each Condition: Symptomatic bradycardia that she was observed overnight and is no longer symptomatic Asthmachronic HPI History of Present Illness: 69-year-old male history of aortic valve replacement and aortic aneurysm repair November 2022. Was briefly on amiodarone in the perioperative period but not anymore. He is on 12.5 mg metoprolol daily. He comes to the ER because he had a dizzy spell around noon after he stood up. He says he stood up out of his chair and started walking and felt lightheaded, weak in the legs, and that he felt like there was a fog for a brief moment. He had another such episode, and his smart watch alarmed that his heart rate was low. He denies fever, chills, chest pain, dyspnea, bowel or bladder disturbance. He does report some nasal and chest congestion from seasonal allergies. He states that he is a former smoker with a [id number] history. He is on an Advair inhaler and albuterol as needed. He says that seasonal allergies are normal for him and he feels like that is what is going on here. He manages this with Flonase nasal spray but no oral medication. In the ER, lab work was significant for potassium 3.2. He received a liter of IV fluids and is feeling better now. Somewhat concerning Lc, he is having bradycardia. He is having episodes where he will have a sinus beat immediately followed by PVC and a compensatory pause. This cycle will continue for some time with a functional heart rate in the 30s. Patient is asymptomatic during this. His case was discussed with cardiology at an outside facility. They report that his dizziness is likely secondary to dehydration from his chlorthalidone or effect of his metoprolol, even though he is only on 12.5 mg of metoprolol succinate daily. They recommended that we hold him in observation overnight and replete his fluid and electrolytes and that no transfer is necessary. Hospitalist was contacted for observation for dizziness, lightheadedness, symptomatic bradycardia HOSPITAL COURSE Hospital Course: He was placed in observation overnight and his symptoms have resolved. He is being discharged home to follow-up with cardiology. I have recommended he stop his diuretic and his beta-samantha until he can be seen by his mechanical adjuster. He is already called the office to set up an appointment ALLERGIES Allergies Allergy/AdvReac Type Severity Reaction Status Date / Time No Known Drug Allergies Allergy Verified 10/26/24 16:02 MEDICATIONS Ambulatory Orders Medication Instructions Recorded Confirmed aspirin 81 mg chewable tablet (St 81 mg PO DAILY 09/12/23 10/26/24 Charlie Aspirin) chlorthalidone 25 mg tablet 25 mg PO DAILY 09/12/23 10/26/24 losartan 25 mg tablet 25 mg PO BID 09/12/23 10/26/24 potassium chloride 10 mEq 10 meq PO DAILY 09/12/23 10/26/24 capsule,extended release tamsulosin 0.4 mg capsule 1 cap PO DAILY 09/12/23 10/26/24 albuterol sulfate 90 mcg/actuation 1 inh inhalation Q4H PRN shortness 09/25/24 10/26/24 aerosol inhaler of breath or wheezing atorvastatin 20 mg tablet (Lipitor) 20 mg PO DAILY 09/25/24 10/26/24 fluticasone 250 mcg-salmeterol 50 1 inh inhalation DAILY 09/25/24 10/26/24 mcg/dose blistr powdr for inhalation (Advair Diskus) fluticasone propionate 50 1 spray intranasal DAILY PRN 09/25/24 10/27/24 mcg/actuation nasal allergy symptoms spray,suspension (24 Hour Allergy Relief) folic acid 400 mcg tablet 400 mcg PO DAILY 09/25/24 10/26/24 metoprolol succinate 25 mg 12.5 mg PO DAILY 09/25/24 10/27/24 tablet,extended release 24 hr omeprazole 20 mg capsule,delayed 20 mg PO DAILY 09/25/24 10/26/24 release PHYSICAL EXAM AT DISCHARGE Vital Signs: Vital Signs x48h Temp Pulse Pulse Resp BP Pulse Ox 10/27/24 09:12 45 L 16 10/27/24 08:00 36.5 C 43 L 16 126/62 96 10/27/24 04:48 36.5 C 44 L 12 130/65 96 General Appearance: positive No acute distress and Alert Eyes Bilateral: positive Normal inspection ENT: positive ENT inspection nml Neck: positive Nml inspection Respiratory: positive Chest non-tender Cardiovascular: positive Bradycardia Peripheral Pulses: positive 2+ Abdomen: positive Non-tender Skin: positive Color nml Extremities: positive Non-tender Neurologic/Psychiatric: positive Oriented x3 LABS 10/27/24 04:42 10/27/24 04:42 FOLLOW UP Follow Up: With cardiology TIME SPENT Time Spent in Discharge (Minutes): 20 Discharge Plan Discharge Patient Disposition: Home, Self Care Condition: Stable Medically Cleared Date:: 10/27/24 Prescriptions: Continued tamsulosin 0.4 MG capsule 1 cap PO DAILY losartan 25 MG tablet 25 mg PO BID aspirin [St Charlie Aspirin] 81 MG tablet,chewable 81 mg PO DAILY fluticasone propion-salmeterol [Advair Diskus] 250-50 mcg/dose blister with device 1 inh inhalation DAILY fluticasone propionate [24 Hour Allergy Relief] 50 mcg/actuation spray,suspension 1 spray intranasal DAILY PRN (Reason: allergy symptoms) Rx Instructions: administer into each nostril omeprazole 20 mg capsule,delayed release(DR/EC) 20 mg PO DAILY atorvastatin [Lipitor] 20 mg tablet 20 mg PO DAILY folic acid 400 mcg tablet 400 mcg PO DAILY albuterol sulfate 90 mcg/actuation HFA aerosol inhaler 1 inh inhalation Q4H PRN (Reason: shortness of breath or wheezing) Held potassium chloride 10 MEQ capsule, extended release 10 meq PO DAILY Hold Instructions: Hold until otherwise directed by mechanical adjuster chlorthalidone 25 MG tablet 25 mg PO DAILY Hold Instructions: Hold until otherwise directed by your mechanical adjuster metoprolol succinate 25 mg tablet extended release 24 hr 12.5 mg PO DAILY Hold Instructions: Hold until otherwise directed by mechanical adjuster Diet: Cardiac Health Concerns: You came into the hospital because you had some dizziness. You were noted to be intermittently in a rhythm with a low heart rate. Your case was discussed with Dr. Russell at [facility] cardiology, and he recommended rehydration and electrolyte optimization. You were held overnight and we gave you IV fluids and potassium. You felt better today, so I am discharging home to follow-up with cardiology. I would like for you to hold your diuretic, your metoprolol, and your potassium until otherwise directed by your mechanical adjuster. Print Language: Kuwaiti Patient Instructions: Bradycardia Stand Alone Forms: PCP List
== END 2024-10-27 12:56 | disposition home or self-care (01) ==
LOC: MS2 15:44 → ED 15:44 → MS2 20:07
PROVIDERS: ADMIT Nurse Practitioner Acute Care; ATTEND Nurse Practitioner Acute Care
DX: Z95.2 Presence of prosthetic heart valve; E86.0 Dehydration; R00.1 Bradycardia, unspecified; J45.909 Unspecified asthma, uncomplicated; I10 Essential (primary) hypertension; I49.3 Ventricular premature depolarization; E87.6 Hypokalemia; Z87.891 Personal history of nicotine dependence